=== PATIENT | female | born 1995 | race Asian ===

== ENCOUNTER 2017-03-08 19:45 | Emergency (ER) | payer OTHER ==
[~2017-03-08] VITALS: Ht 162.6 cm; Wt 67.0 kg
[2017-03-08 19:50] VITALS: Ht 162.6 cm; Wt 67.0 kg
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
[2017-03-08] MEDS ORDERED: KETOROLAC 60 MG INJ IM STA (23:28)
[2017-03-08] MEDS ORDERED: DIAZEPAM 5 MG TAB PO ONE (23:30)
[2017-03-08] MEDS ORDERED: DIAZ-90 PO (23:37)
[2017-03-08] MEDS ORDERED: IBUP-1542 PO (23:37)
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
== END 2017-03-08 23:53 | disposition home or self-care (01) ==
LOC: FTE 19:45
DX: S19.9XXA Unspecified injury of neck, initial encounter (principal); S49.92XA Unspecified injury of left shoulder and upper arm, initial encounter; V43.52XA Car driver injured in collision with other type car in traffic accident, initial encounter
CPT/HCPCS: 71010; 72040; 72072; 96372; J1885; Z7502; Z7610